=== PATIENT | female | born 1945 | race Caucasian/White ===

== ENCOUNTER → 2016-07-20 | Outpatient (CLI) | payer MEDICARE, OTHER | END | disposition home or self-care (01) | LOC: PCVCCLINIC 16:31 | PROVIDERS: ATTEND Internal Medicine Cardiovascular Disease | DX: I48.91 Unspecified atrial fibrillation (principal); I10 Essential (primary) hypertension; I34.0 Nonrheumatic mitral (valve) insufficiency; R60.9 Edema, unspecified | CPT/HCPCS: 93005; G0463 ==

== ENCOUNTER → 2017-02-08 | Outpatient (CLI) | payer MEDICARE, OTHER ==
--- NOTE | 2017-02-08 11:07 | PCVCIMAG ---
APPROVED REPORT Study performed: 02/08/2017 09:52:31 EXAM: Comprehensive 2D, Doppler, and color-flow Echocardiogram Patient Location: Echo lab Status: routine BSA: 1.78 HR: 92 bpmBP: 112/70 mmHg Rhythm: NSR Other Information Study Quality: Good Risk Factors: Cardiac Risk Factors: HTN Indications Atrial Fibrillation Hypertension/HDD Mitral Regurgitation 2D Dimensions LVEF(%): 59.07 (>50%) IVSd: 9.68 (7-11mm)LVOT Diam: 19.00 (18-24mm) LVDd: 41.88 mm PWd: 10.10 (7-11mm)Ascending Ao: 29.67 (22-36mm) LVDs: 28.90 (25-40mm) Left Atrium: 48.38 (27-40mm) Aortic Root: 27.53 mm LV Single Plane 4CH: 56.13 % LV Single Plane 2CH: 58.86 %Pretty's LVEF: 57.49 % Biplane EF: 59.1 % Volumes Left Atrial Volume (Systole) Single Plane 4CH: 66.06 mLSingle Plane 2CH: 71.94 mL LA ESV Index: 40.00 mL/m2 Aortic Valve AoV Peak Sergio.: 1.29 m/s AO Peak Gr.: 7.42 mmHgLVOT Max P.82 mmHg LVOT Max V: 0.81 m/s KALI Vmax: 1.71 cm2 Pulmonary Valve PV Peak Esrgio.: 0.85 m/sPV Peak Gr.: 2.94 mmHg NY End Vmax: 1.46 m/s Tricuspid Valve TR Peak Sergio.: 2.72 m/sRAP Estimate: 7.00 mmHg TR Peak Gr.: 29.49 mmHg PA Pressure: 37.00 mmHg Left Ventricle The left ventricle is normal size. There is normal LV segmental wall motion. There is normal left ventricular wall thickness. Left ventricular systolic function is normal. The left ventricular ejection fraction is within the normal range. LVEF is 60%. This study is not technically sufficient to allow evaluation of the LV diastolic function due to atrial fibrillation. Right Ventricle Right ventricle is mildly dilated. The right ventricular systolic function is normal. Atria Left atrium is moderately dilated. Right atrium is moderately dilated. Aortic Valve The aortic valve is normal in structure. No aortic regurgitation is present. There is no aortic valvular stenosis. Mitral Valve There is mitral annular calcification. Moderate mitral regurgitation. No evidence of mitral valve stenosis. Tricuspid Valve The tricuspid valve is normal in structure. Moderate tricuspid regurgitation. Pulmonary artery pressure is 37 mmHg. Pulmonic Valve The pulmonary valve is normal in structure. Moderate pulmonic regurgitation. Great Vessels The aortic root is normal in size. Aortic arch is not well visualized. IVC is normal in size and collapses with >50% inspiration. Pericardium There is no pericardial effusion. <Conclusion> The left ventricle is normal size. Left ventricular systolic function is normal. Left atrium is moderately dilated. Right atrium is moderately dilated. There is no aortic valvular stenosis. Moderate mitral regurgitation. Moderate tricuspid regurgitation. Pulmonary artery pressure is 37 mmHg. There is no pericardial effusion.
== END | disposition home or self-care (01) ==
LOC: PCVCIMAG 09:44
PROVIDERS: ATTEND Internal Medicine Cardiovascular Disease
DX: I08.1 Rheumatic disorders of both mitral and tricuspid valves (principal); R60.9 Edema, unspecified; K21.9 Gastro-esophageal reflux disease without esophagitis; I10 Essential (primary) hypertension; I48.91 Unspecified atrial fibrillation; Z79.899 Other long term (current) drug therapy; Z88.8 Allergy status to other drugs, medicaments and biological substances
CPT/HCPCS: 93005; 93306; G0463

== ENCOUNTER → 2017-08-27 | Outpatient (CLI) | payer MEDICARE, OTHER | END | disposition home or self-care (01) | LOC: PCVCCLINIC 14:33 | DX: I10 Essential (primary) hypertension (principal); I48.91 Unspecified atrial fibrillation; R60.9 Edema, unspecified; R94.31 Abnormal electrocardiogram [ECG] [EKG]; Z79.899 Other long term (current) drug therapy | CPT/HCPCS: 93005; G0463 ==

== ENCOUNTER → 2017-09-03 | Outpatient (CLI) | payer MEDICARE, OTHER | END | disposition home or self-care (01) | LOC: PCVCIMAG 08:30 | DX: I08.1 Rheumatic disorders of both mitral and tricuspid valves (principal); I10 Essential (primary) hypertension; I48.91 Unspecified atrial fibrillation; R60.9 Edema, unspecified; Z79.899 Other long term (current) drug therapy | CPT/HCPCS: 80061; 93005; 93306; G0463 ==

== ENCOUNTER → 2017-10-16 | Outpatient (CLI) | payer MEDICARE, OTHER | END | disposition home or self-care (01) | LOC: PCVCCLINIC 11:05 | DX: I48.91 Unspecified atrial fibrillation (principal); I10 Essential (primary) hypertension; I34.0 Nonrheumatic mitral (valve) insufficiency; R60.9 Edema, unspecified; Z88.8 Allergy status to other drugs, medicaments and biological substances; Z79.899 Other long term (current) drug therapy | CPT/HCPCS: 93005; G0463 ==

== ENCOUNTER → 2018-04-22 | Outpatient (CLI) | payer MEDICARE, OTHER | END | disposition home or self-care (01) | LOC: PCVCCLINIC 11:52 | PROVIDERS: ATTEND Internal Medicine Cardiovascular Disease | DX: I48.91 Unspecified atrial fibrillation (principal); I10 Essential (primary) hypertension; R60.9 Edema, unspecified; E03.9 Hypothyroidism, unspecified | CPT/HCPCS: 93005; G0463 ==

== ENCOUNTER → 2018-09-30 | Outpatient (CLI) | payer MEDICARE, OTHER | END | disposition home or self-care (01) | LOC: PCVCCLINIC 12:50 | PROVIDERS: ATTEND Internal Medicine Cardiovascular Disease | DX: I48.91 Unspecified atrial fibrillation (principal); R94.31 Abnormal electrocardiogram [ECG] [EKG]; I10 Essential (primary) hypertension; I34.0 Nonrheumatic mitral (valve) insufficiency; R60.9 Edema, unspecified; K21.9 Gastro-esophageal reflux disease without esophagitis; E03.9 Hypothyroidism, unspecified; Z79.899 Other long term (current) drug therapy; Z88.8 Allergy status to other drugs, medicaments and biological substances | CPT/HCPCS: 93005; G0463 ==

== ENCOUNTER → 2019-03-31 | Outpatient (CLI) | payer MEDICARE, OTHER ==
--- NOTE | 2019-03-31 14:59 | PCVCIMAG ---
APPROVED REPORT Study performed: 03/31/2019 13:56:13 EXAM: Comprehensive 2D, Doppler, and color-flow Echocardiogram Patient Location: Echo lab Room #: [id number]: routine BSA: 1.85 HR: 60 bpmBP: 126/60 mmHg Rhythm: Atrial Fibrillation Other Information Study Quality: Good Indications Atrial Fibrillation Bradycardia 2D Dimensions IVSd: 7.48 (7-11mm)LVOT Diam: 23.10 (18-24mm) LVDd: 43.38 mm PWd: 7.53 (7-11mm)Ascending Ao: 30.14 (22-36mm) LVDs: 27.10 (25-40mm) Left Atrium: 47.31 (27-40mm) Aortic Root: 23.61 mm LV Single Plane 4CH: 60.85 % LV Single Plane 2CH: 60.86 % Biplane EF: 60.0 % Volumes Left Atrial Volume (Systole) Single Plane 4CH: 94.83 mLSingle Plane 2CH: 103.98 mL Biplane LA Volume: 103.00 mLLA ESV Index: 56.00 mL/m2 Aortic Valve AoV Peak Sergio.: 1.07 m/s AO Peak Gr.: 4.54 mmHgLVOT Max P.53 mmHg LVOT Max V: 0.62 m/s KALI Vmax: 2.43 cm2 Mitral Valve MV E Max Sergio.: 1.14 m/s MV PHT: 44.63 ms MVA (PHT): 4.93 cm2 Pulmonary Valve PV Peak Sergio.: 0.69 m/sPV Peak Gr.: 1.92 mmHg Tricuspid Valve TR Peak Sergio.: 2.36 m/s TR Peak Gr.: 22.35 mmHg TV Vmax: 0.80 m/sPA Pressure: 29.00 mmHg Left Ventricle The left ventricle is normal size. There is normal LV segmental wall motion. There is normal left ventricular wall thickness. Left ventricular systolic function is normal. The left ventricular ejection fraction is within the normal range. LVEF is 60-65%. This study is not technically sufficient to allow evaluation of the LV diastolic function due to atrial fibrillation. Right Ventricle Right ventricle is dilated. The right ventricular systolic function is normal. Atria Left atrium is severely dilated. Right atrium is severely dilated. Aortic Valve The aortic valve is normal in structure. No aortic regurgitation is present. There is no aortic valvular stenosis. Mitral Valve The mitral valve is normal in structure. Moderate to severe mitral regurgitation No evidence of mitral valve stenosis. Tricuspid Valve The tricuspid valve is normal in structure. Moderate tricuspid regurgitation with a PA pressure of 29 mmHg. Borderline pulmonary hypertension. Pulmonic Valve The pulmonary valve is normal in structure. There is no pulmonic valvular regurgitation. Great Vessels The aortic root is normal in size. The ascending aorta is normal in size. Aortic arch is normal in caliber. IVC is normal in size and collapses >50% with inspiration. Pericardium There is no pericardial effusion. There is no pleural effusion. <Conclusion> The left ventricle is normal size. There is normal left ventricular wall thickness. Left ventricular systolic function is normal. Right ventricle is dilated. Left atrium is severely dilated. Right atrium is severely dilated. The aortic valve is normal in structure. Moderate to severe mitral regurgitation Moderate tricuspid regurgitation with a PA pressure of 29 mmHg.
== END | disposition home or self-care (01) ==
LOC: PCVCIMAG 12:52
PROVIDERS: ATTEND Internal Medicine Cardiovascular Disease
DX: I08.1 Rheumatic disorders of both mitral and tricuspid valves (principal); I48.91 Unspecified atrial fibrillation; I10 Essential (primary) hypertension; R60.9 Edema, unspecified; R00.1 Bradycardia, unspecified; I27.20 Pulmonary hypertension, unspecified; Z79.899 Other long term (current) drug therapy; K21.9 Gastro-esophageal reflux disease without esophagitis
CPT/HCPCS: 93005; 93306; G0463